=== PATIENT | male | born 1950 | race Caucasian/White ===

== ENCOUNTER → 2019-02-25 | Outpatient (CLI) | payer MEDICARE | LOC: GMA MATASK 11:24 | PROVIDERS: ATTEND Family Medicine | DX: N40.0 Benign prostatic hyperplasia without lower urinary tract symptoms (principal) ==

== ENCOUNTER → 2019-10-10 | Outpatient (CLI) | payer MEDICARE ==
--- NOTE | 2019-10-10 10:01 | RAD ---
EXAM DESCRIPTION: Foot,Left 3 Views CLINICAL HISTORY: PAIN IN LEFT FOOT COMPARISON: None. TECHNIQUE: 3 views left FINDINGS: Mild distal interphalangeal joint arthritis is observed. Mild degenerative changes are also observed in the metatarsal phalangeal joint of the first digit. No fracture is detected. Small plantar and Achilles enthesophytes are observed. Mild intertarsal arthritis is seen. IMPRESSION: Degenerative changes are observed. No fracturing is detected. Electronically signed by: Eliecer Quintanilla MD 10/10/2019 9:59 AM CDT
--- NOTE | 2019-10-10 10:02 | RAD ---
EXAM DESCRIPTION: Pelvis CLINICAL HISTORY: PAIN IN RIGHT AND LEFT HIP COMPARISON: None. TECHNIQUE: AP pelvis FINDINGS: Marked loss of joint space is observed in the left hip. Acetabular osteophyte formation is observed. No fracture is detected. The right hip is intact. Mild sacroiliac joint arthritis is observed on the right. IMPRESSION: Degenerative changes are observed in the left hip and right sacroiliac joint. Electronically signed by: Eliecer Quintanilla MD 10/10/2019 10:00 AM CDT
== END ==
LOC: RAD 08:43
PROVIDERS: ATTEND Orthopaedic Surgery
DX: M16.12 Unilateral primary osteoarthritis, left hip (principal); M47.898 Other spondylosis, sacral and sacrococcygeal region; M19.072 Primary osteoarthritis, left ankle and foot

== ENCOUNTER 2019-10-11 05:45 | Day surgery (SDC) | payer MEDICARE ==
[2019-10-11] MEDS ORDERED: LACTATED RINGERS 1,000 ML ONE (06:35)
[2019-10-11] MEDS ORDERED: PROPOFOL 200 MG/20 ML VIAL IV ONE (07:00)
[2019-10-11] MEDS ORDERED: LIDOCAINE 1% 10 ML VIAL INJ ONE ×3 (07:00→09:10)
[2019-10-11] MEDS ORDERED: methylPREDNISolone ACETATE 80 MG/ML VIAL ONE (07:27)
[2019-10-11] MEDS ORDERED: BUPIVACAINE 0.25% INJ 30 ML VIAL INJ ONE ×2 (07:28→09:10)
[2019-10-11] MEDS ORDERED: methylPREDNISolone ACETATE 80 MG/ML VIAL INJ ONE (09:11)
[2019-10-11 11:25] VITALS: BP 123/82; TEMP 98.2; O2SAT 97
--- NOTE | 2019-10-12 08:36 | RAD ---
EXAM DESCRIPTION: Fluoroscopy Up to 1Hr CLINICAL HISTORY: 68 years Male, LEFT HIP INJECTION COMPARISON: None. FINDINGS: Total fluoroscopy time five seconds, one fluoroscopic image Single intraprocedural fluoroscopic view of the left hip was obtained for guidance purposes only. No apparent intraprocedural complication. IMPRESSION: Limited exam performed for guidance purposes only without apparent intraprocedural complication. Please see separate procedural note for details. Electronically signed by: Olivier Hook MD 10/12/2019 8:35 AM CDT
--- NOTE | 2019-10-17 09:06 | OP ---
DATE OF PROCEDURE: 10/11/19 PREOPERATIVE DIAGNOSIS: 1. Arthritis of the hip. POSTOPERATIVE DIAGNOSIS: 1. Arthritis of the hip. PROCEDURE: 1. Left hip intraarticular injection. SURGEON: Wayne Bacon MD. FROG FARMER: Armin Arias CST, SA-C. ANESTHESIA: Local with sedation. COMPLICATIONS: None. FINDINGS: Osteoarthritis of the hip. INDICATION: Armin has a history of pain in the hip secondary to arthritis. He has requested injection. After discussing the risks, benefits and alternatives to that, the patient has given informed consent for that. PROCEDURE: The patient was brought to the Operating Room and placed in supine position. Conscious sedation was administered and the leg was flexed, abducted and externally rotated. The groin was prepped and fluoroscopic imaging was used to confirm needle placement into the hip joint through a medial portal. Once placement had been confirmed, a combination of lidocaine and Depo-Medrol were injected into the joint. After injection, the needle was withdrawn. Pressure was held on the injection site. A sterile band-aid was placed. The patient was then taken back to the Day Surgery Unit. POSTOPERATIVE PLAN: The patient will be weight-bearing as tolerated. The patient will followup with us in 2 weeks. #[id number] MTDD
== END 2019-10-11 11:20 | disposition home or self-care (01) ==
LOC: AMB 05:45
PROVIDERS: ATTEND Orthopaedic Surgery
DX: M16.12 Unilateral primary osteoarthritis, left hip (principal)
CPT/HCPCS: 20610; 76000; J1030; J3490; J7120

== ENCOUNTER → 2019-12-29 | Outpatient (CLI) | payer MEDICARE | END | disposition home or self-care (01) | LOC: LAB.O 13:24 | PROVIDERS: ATTEND Orthopaedic Surgery | DX: Z01.818 Encounter for other preprocedural examination (principal) ==

== ENCOUNTER 2020-01-08 10:16 | Emergency (ER) | payer MEDICARE ==
--- NOTE | 2020-01-08 11:36 | ED.PDOC ---
History of Present Illness - General Chief Complaint: Problem Stated Complaint: Difficulty urinating Time Seen by Provider: 01/08/20 10:17 Source: patient Exam Limitations: no limitations - History of Present Illness Initial Comments: The patient is a 69-year-old male presented emergency room with 3 to 5 days of progressive urinary frequency and sensation that he is not voiding his bladder well. He did attempt to avoid his bladder here but has on ultrasound at least 800-1000 cc left in the bladder. Bladder is palpably distended. No fevers. No burning with urination. He does have a history of prostate issues but has not seen a urologist in quite a few years. He does take tamsulosin. No syncope or near syncope. Timing/Duration: other Severity: moderate Improving Factors: nothing Worsening Factors: nothing Associated Symptoms: denies symptoms Allergies/Adverse Reactions: Allergies NO KNOWN ALLERGY Allergy (Verified 01/08/20 10:57) Home Medications: Ambulatory Orders Atorvastatin Calcium [Lipitor] 40 mg PO BEDTIME 10/10/19 Gabapentin [Neurontin] 600 mg PO BEDTIME 10/10/19 Tamsulosin [Flomax] 0.4 mg PO BEDTIME 10/10/19 Terbinafine HCl [Lamisil] 250 mg PO BEDTIME 10/10/19 Ciprofloxacin [Cipro] 250 mg PO Q12H #30 tablet 01/08/20 Review of Systems - Review of Systems Constitutional: States: no symptoms reported EENTM: States: no symptoms reported Respiratory: States: no symptoms reported Cardiology: States: no symptoms reported Gastrointestinal/Abdominal: States: no symptoms reported Genitourinary: States: see HPI Musculoskeletal: States: no symptoms reported Skin: States: no symptoms reported Neurological: States: no symptoms reported Endocrine: States: no symptoms reported All other Systems: No Change from Baseline Past Medical History (General) - Patient Medical History Hx Stroke: No Hx of COPD: No Hx Cardiac Disorders: No Hx Congestive Heart Failure: No Hx Hypertension: No Hx Diabetes: No Hx Cancer: No Hx MRSA: No - Vaccination History Hx Influenza Vaccination: Yes Hx Pneumococcal Vaccination: Yes - Social History Hx Tobacco Use: No Hx Alcohol Use: Yes Hx Substance Use: No Hx Substance Use Treatment: No Hx Depression: No Family Medical History - Family History Mother Family History: No Known Physical Exam - Physical Exam General Appearance: Alert, Comfortable, No apparent distress Eye Exam: bilateral normal Ears, Nose, Throat: hearing grossly normal, normal pharynx Neck: full range of motion, supple Respiratory: no respiratory distress, no accessory muscle use Cardiovascular/Chest: normal peripheral pulses, no edema, other - Regular rate Peripheral Pulses: radial,right: 2+, radial,left: 2+ Gastrointestinal/Abdominal: soft, other - Uncomfortably distended palpable bladder Rectal Exam: deferred Back Exam: no CVA tenderness, no vertebral tenderness Extremity: normal range of motion, non-tender, normal inspection, no pedal edema, normal capillary refill Neurologic: help desk rep II-XII nml as tested, alert, normal mood/affect, oriented x 3 Skin Exam: normal color Comments: Vital Signs - 24 hr 01/08/20 01/08/20 10:17 10:20 Temperature 97.7 F Pulse Rate [ 79 79 Pulse ox] Respiratory 18 18 Rate Blood Pressure 156/102 [L arm] O2 Sat by Pulse 97 Oximetry Progress - Progress Progress: 01/08/20 11:36 The patient is a 69-year-old male presented emergency room secondary to progressive urinary frequency with a sensation of urinary retention. Indeed the patient does have significant urinary retention which is most likely due to prostate hypertrophy. The patient is going to be covered with 2 weeks of lower dose oral ciprofloxacin in case this is a mild prostatitis. Urinary catheter had to be placed, after which 1200 cc of urine was obtained. Urinalysis does look good at this point. No evidence of sepsis. The patient needs to contact his primary care doctor on Thursday to get him set up with a urologist in the coming week for further evaluation. The patient is to continue taking his tamsulosin. He does need to hold any cholesterol medication he is taking while he is taking the antibiotic. ER warnings are given for any significant worsening. natan parada [id number] - Results/Orders Results/Orders: Laboratory Results - last 24 hr 01/08/20 10:50 Urine Color Yellow Urine Appearance Clear Urine pH 6.5 Ur Specific [place] 1.025 Urine Protein Negative Urine Glucose (UA) Negative Urine Ketones Negative Urine Blood Trace-intact H Urine Nitrite Negative Urine Bilirubin Negative Urine Urobilinogen 0.2 Ur Leukocyte Esterase Negative Urine RBC 1-3 Urine WBC 0 Ur Epithelial Cells 0 Urine Bacteria 0 Departure - Departure Clinical Impression: Acute urinary retention Disposition: Discharge to Home or Self Care Condition: Fair Departure Forms: ED Discharge - Pt. Copy, Patient Portal Self Enrollment Instructions: Urinary Retention (DC) Diet: regular diet Activity: increase activity as tolerated Referrals: Trevon Beltran MD [Primary Care Provider] - 1-2 Weeks Prescriptions: Ciprofloxacin [Cipro] 250 mg PO Q12H #30 tablet Home Medications: Ambulatory Orders Atorvastatin Calcium [Lipitor] 40 mg PO BEDTIME 10/10/19 Gabapentin [Neurontin] 600 mg PO BEDTIME 10/10/19 Tamsulosin [Flomax] 0.4 mg PO BEDTIME 10/10/19 Terbinafine HCl [Lamisil] 250 mg PO BEDTIME 10/10/19 Ciprofloxacin [Cipro] 250 mg PO Q12H #30 tablet 01/08/20 Additional Instructions: The patient is a 69-year-old male presented emergency room secondary to progressive urinary frequency with a sensation of urinary retention. Indeed the patient does have significant urinary retention which is most likely due to prostate hypertrophy. The patient is going to be covered with 2 weeks of lower dose oral ciprofloxacin in case this is a mild prostatitis. Urinary catheter had to be placed, after which 1200 cc of urine was obtained. Urinalysis does look good at this point. No evidence of sepsis. The patient needs to contact his primary care doctor on Thursday to get him set up with a urologist in the coming week for further evaluation. The patient is to continue taking his tamsulosin. He does need to hold any cholesterol medication he is taking while he is taking the antibiotic. ER warnings are given for any significant worsening.
[2020-01-08 12:33] VITALS: BP 129/84; TEMP 97.8; O2SAT 98
== END 2020-01-08 12:32 | disposition home or self-care (01) ==
LOC: ER 10:16
DX: R33.9 Retention of urine, unspecified (principal); R35.0 Frequency of micturition; Z79.899 Other long term (current) drug therapy